=== PATIENT | male | born 1980 | race Caucasian/White ===

== ENCOUNTER 2021-09-02 14:28 | Emergency (ER) | payer MEDICAID ==
[~2021-09-02] VITALS: Ht 177.8 cm; Wt 81.8 kg
[2021-09-02 14:43] VITALS: BP 122/84
--- NOTE | 2021-09-02 18:37 | NUR ---
NOT IN LOBBY. 1ST CALL
[2021-09-03] MEDS ORDERED: CEPH750C7 PO (22:06)
[2021-09-03] MEDS ORDERED: DOXY100T67 PO (22:06)
== END 2021-09-02 19:08 | disposition left against medical advice (07) ==
LOC: ER 14:29
DX: S80.862A Insect bite (nonvenomous), left lower leg, initial encounter (principal); Z53.21 Procedure and treatment not carried out due to patient leaving prior to being seen by health care provider; W57.XXXA Bitten or stung by nonvenomous insect and other nonvenomous arthropods, initial encounter; Y93.89 Activity, other specified; Y92.89 Other specified places as the place of occurrence of the external cause; Y99.8 Other external cause status

== ENCOUNTER 2021-09-03 17:53 | Emergency (ER) | payer MEDICAID ==
[~2021-09-03] VITALS: Ht 177.8 cm; Wt 81.8 kg
[2021-09-03 17:59] VITALS: BP 111/57
[2021-09-03] MEDS ORDERED: DOXYCYCLINE 100MG CAPSULE PO STA (21:57)
[2021-09-03] MEDS ORDERED: cephalexin 500mg capsule PO ONE (22:00)
[2021-09-03] MEDS ORDERED: DOXY100T67 PO (22:06)
[2021-09-03] MEDS ORDERED: CEPH750C7 PO (22:06)
--- NOTE | 2021-09-03 22:24 | NUR ---
pt requested austyn hernandez. food/drink provided
--- NOTE | 2021-09-03 22:24 | NUR ---
po meds x2 given
--- NOTE | 2021-09-03 22:42 | NUR ---
dressing applied to i&d site
== END 2021-09-03 22:43 | disposition home or self-care (01) ==
LOC: ER 17:54
DX: S81.802A Unspecified open wound, left lower leg, initial encounter (principal); L03.116 Cellulitis of left lower limb; R06.02 Shortness of breath; R51.9 Headache, unspecified; R50.9 Fever, unspecified; R11.0 Nausea; W57.XXXA Bitten or stung by nonvenomous insect and other nonvenomous arthropods, initial encounter; Y93.89 Activity, other specified; Y92.89 Other specified places as the place of occurrence of the external cause; Y99.8 Other external cause status
CPT/HCPCS: 99283; A6449